=== PATIENT | male | born 1990 ===

== ENCOUNTER 2019-01-30 02:16 | Emergency (ER) | payer SELFPAY ==
[2019-01-30 02:26] VITALS: BP 120/72; PULSE 68; RESP 18; TEMP 97.7; O2SAT 99
--- NOTE | 2019-01-30 02:40 | ED PDOC ---
HPI: Psych/Substance Abuse Time Seen by Provider: 01/30/19 02:30 Chief Complaint (Nursing): Medical Clearance Chief Complaint (Provider): clearance for incarceration History Per: Patient Additional Complaint(s): 28 y/o male here in police custody for clearance for incarceration. Patient admits to drinking 2 beers tonight; [facility] police were called because he was unable to pay his tab and he has outstanding warrants. Patient denies acute me dical or psychiatric complaints. Past Medical History Reviewed: Historical Data, Nursing Documentation, Vital Signs Vital Signs: Last Vital Signs Temp 97.7 F 01/30/19 02:23 Pulse 68 01/30/19 02:23 Resp 18 01/30/19 02:23 BP 120/72 01/30/19 02:23 Pulse Ox 99 01/30/19 02:23 Primary Care Provider: FAMILY PROVIDER,NO - Medical History PMH: No Chronic Diseases - Surgical History Surgical History: No Surg Hx - Family History Family History: States: No Known Family Hx - Living Arrangements Living Arrangements: Alone - Social History Drugs: Denies - Allergies Allergies/Adverse Reactions: Allergies Allergy/AdvReac Type Severity Reaction Status Date / Time No Known Allergies Allergy Verified 01/30/19 02:26 Review of Systems ROS Statement: Except As Marked, All Systems Reviewed And Found Negative Physical Exam - Reviewed Nursing Documentation Reviewed: Yes Vital Signs Reviewed: Yes - Physical Exam Appears: Positive for: Well, Non-toxic, No Acute Distress Head Exam: Positive for: ATRAUMATIC, NORMAL INSPECTION, NORMOCEPHALIC Skin: Positive for: Normal Color Eye Exam: Positive for: Normal appearance ENT: Positive for: Normal ENT Inspection Cardiovascular/Chest: Positive for: Regular Rate, Rhythm Respiratory: Positive for: Normal Breath Sounds Gastrointestinal/Abdominal: Positive for: Normal Exam Back: Positive for: Normal Inspection Extremity: Positive for: Normal ROM Neurological/Psych: Positive for: Awake, Alert, Oriented (x3) - ECG O2 Sat by Pulse Oximetry: 99 - Progress ED Course And Treament: -accucheck -crisis eval Patient evaluated by power lineworker and cleared for discharge into police custody as per Dr. Eli Disposition - Clinical Impression Clinical Impression: Alcohol use - Patient ED Disposition Is Patient to be Admitted: No Counseled Patient/Family Regarding: Studies Performed, Diagnosis, Need For Followup - Disposition Disposition: Discharged/Transfer to Law Enforcement Disposition Time: 03:16 Condition: STABLE Additional Instructions: Patient medically and psychiatrically cleared for incarceration Instructions: Alcohol Use - When Is Drinking a Problem?
== END 2019-01-30 03:27 ==
LOC: H.ER 02:16
DX: F10.10 Alcohol abuse, uncomplicated (principal)